=== PATIENT | male | born 1960 | race African-American/Black ===

== ENCOUNTER 2017-07-26 11:16 | Inpatient (IN) | payer OTHER ==
[2017-07-26 11:54] VITALS: BMI 22.4
--- NOTE | 2017-07-26 14:35 | HP ---
CIWA Score - CIWA Score Nausea/Vomitin Muscle Tremors: 3 Anxiety: 3 Agitation: 1-Slight > Activity Paroxysmal Sweats: 4-Forehead w/Sweat Beads Orientation: 0-Oriented Tacttile Disturbances: 0-None Auditory Disturbances: 0-None Visual Disturbances: 0-None Headache: 3-Moderate CIWA-Ar Total Score: 17 Admission ROS S - HPI Chief Complaint: Alcohol withdrawal symptoms Allergies/Adverse Reactions: Allergies Allergy/AdvReac Type Severity Reaction Status Date / Time No Known Allergies Allergy Verified 07/26/17 14:03 History of Present Illness: 57 years old male with a long history of alcohol dependence is seeking admission to detox. Patient has been to previous detox at [facility] 9 years ago and reports insignificant period of sobriety. He has medical history of hypertension (not on medication) and depression. He denies suicide attempt and suicidal ideation at this time. He is on methadone 70mg tablet oral at [facility]. Last dose medicated is 07/25/2017. Dose is yet to be confirmed by the nurse. This is his first admission to [facility]. Exam Limitations: No Limitations - Ebola screening Have you traveled outside of the country in the last 21 days: No (N) Have you had contact with anyone from an Ebola affected area: No Have you been sick,other than usual withdrawal symptoms: No Do you have a fever: No - Review of Systems Constitutional: Loss of Appetite, Malaise, Night Sweats, Changes in sleep EENT: reports: Mouth Swelling Respiratory: reports: No Symptoms reported Cardiac: reports: No Symptoms Reported GI: reports: Diarrhea (x 2), Nausea, Poor Appetite, Poor Fluid Intake, Vomiting (x 2), Abdominal cramping : reports: No Symptoms Reported Musculoskeletal: reports: No Symptoms Reported Integumentary: reports: Dryness Neuro: reports: Headache, Tingling, Tremors Endocrine: reports: No Symptoms Reported Hematology: reports: No Symptoms Reported Psychiatric: reports: Orientated x3, Anxious, Depressed Other Systems: Reviewed and Negative Patient History - Patient Medical History Hx Anemia: No Hx Asthma: No Hx Chronic Obstructive Pulmonary Disease (COPD): No Hx Cancer: No Hx Cardiac Disorders: No Hx Congestive Heart Failure: No Hx Hypertension: Yes (Not on medication) Hx Hypercholesterolemia: No Hx Pacemaker: No HX Cerebrovascular Accident: No Hx Seizures: No Hx Diabetes: No Hx Gastrointestinal Disorders: No Hx Liver Disease: No Hx Genitourinary Disorders: No Hx Sexually Transmitted Disorders: No Hx Renal Disease (ESRD): No Hx Thyroid Disease: No Hx Human Immunodeficiency Virus (HIV): No (Negative 2017) Hx Hepatitis C: No Hx Depression: Yes (Not on medication) Hx Suicide Attempt: Yes (Denies suicidal ideation at this time) Hx Bipolar Disorder: No Hx Schizophrenia: No - Patient Surgical History Past Surgical History: No - PPD History Previous Implant?: No Documented Results: Negative w/o proof PPD to be Administered?: Yes - Reproductive History Patient is a Female of Child Bearing Age (11 -55 yrs old): No (MALE) - Smoking Cessation Smoking history: Former smoker Have you smoked in the past 12 months: No Hx Chewing Tobacco Use: No Initiated information on smoking cessation: No - Substance & Tx. History Hx Alcohol Use: Yes Hx Substance Use: No Substance Use Type: Alcohol Hx Substance Use Treatment: Yes ([place], [place]) - Substances Abused Alcohol Route: Oral Frequency: Daily Amount used: 1 PINT VODKA Age of first use: 15 Date of Last Use: 07/26/17 Family Disease History - Family Disease History Family Disease History: Heart Disease: Mother (HTN- ) Admission Physical Exam S - Vital Signs Vital Signs: Vital Signs - 24 hr 07/26/17 11:52 Temperature 98.6 F Pulse Rate 63 Respiratory 20 Rate Blood Pressure 169/102 - Physical General Appearance: Yes: Disheveled, Moderate Distress, Tremorous, Irritable, Sweating, Anxious HEENTM: Yes: EOMI, Normal ENT Inspection, Normal Voice, JAYSON Respiratory: Yes: Lungs Clear, Normal Breath Sounds, No Respiratory Distress Neck: Yes: Supple Breast: Yes: Breast Exam Deferred Cardiology: Yes: Regular Rhythm, Regular Rate Abdominal: Yes: Normal Bowel Sounds, Soft Genitourinary: Yes: Within Normal Limits Back: Yes: Normal Inspection Musculoskeletal: Yes: Within Normal Limits Extremities: Yes: Tremors Neurological: Yes: Alert, Normal Mood/Affect Integumentary: Yes: Dry Lymphatic: Yes: Within Normal Limits - Diagnostic (1) Alcohol dependence with uncomplicated withdrawal Current Visit: Yes Status: Chronic (2) Hypertension Current Visit: Yes Status: Chronic Qualifiers: Hypertension type: unspecified Qualified Code(s): I10 - Essential (primary ) hypertension (3) Depression Current Visit: Yes Status: Acute Qualifiers: Depression Type: unspecified Qualified Code(s): F32.9 - Major depressive disorder, single episode, unspecified Cleared for Admission [facility] - Detox or Rehab [facility] Level of Care: Medically Managed Detox Regimen/Protocol: Librium S Breath Alcohol Content Breath Alcohol Content: 0.002 Urine Drug Screen - Results Drug Screen Negative: Yes
[2017-07-26] MEDS ORDERED: chlordiazePOXIDE HCL 25 MG CAPSULE PO PRN (14:52)
[2017-07-26] MEDS ORDERED: MENTHOL/PHENOL 1 EACH UD MM PRN (14:52)
[2017-07-26] MEDS ORDERED: guaiFENesin/D-METHORPHAN HB 10 ML UNIT-DOSE CUPS PO PRN (14:52)
[2017-07-26] MEDS ORDERED: LOPERAMIDE HCL 2 MG CAPSULE PO PRN (14:52)
[2017-07-26] MEDS ORDERED: MAGNESIUM CITRATE 300 ML BOTTLE PO PRN (14:52)
[2017-07-26] MEDS ORDERED: MAGNESIUM HYDROX 2400MG/30ML ORAL SUSPENSION 30 ML CUP PO PRN (14:52)
[2017-07-26] MEDS ORDERED: P-EPHED 60MG/TRIPROLIDI 2.5MG TABLET PO PRN (14:52)
[2017-07-26] MEDS ORDERED: MAG HYDROX/AL HYDROX/SIMETH 30 ML UNIT-DOSE CUP PO PRN (14:52)
[2017-07-26] MEDS ORDERED: IBUPROFEN 400 MG TABLET (FP) PO PRN (14:52)
[2017-07-26] MEDS ORDERED: ACETAMINOPHEN 325 MG TABLET (FP) PO PRN (15:14)
[2017-07-26] MEDS ORDERED: cloNIDine HCL 0.1 MG TABLET PO ONE (15:30)
[2017-07-26] MEDS: chlordiazePOXIDE HCL 25 MG CAPSULE PO SCH ×2 (16:48→22:41)
[2017-07-26] MEDS ORDERED: MELATONIN 5 MG TABLETS PO PRN (22:00)
[2017-07-26] MEDS: THIAMINE HCL 100 MG TABLET (FP) PO SCH (22:41)
[2017-07-27 01:19] LABS: URINE APPEARANCE CLEAR; URINE BILIRUBIN NEGATIVE (<2.0 mg/dL); URINE BLOOD NEGATIVE (NEGATIVE); URINE COLOR LTYELLOW; URINE GLUCOSE (UA) NEGATIVE (NEGATIVE); URINE KETONE NEGATIVE (NEGATIVE); URINE LEUK ESTERASE NEGATIVE (NEGATIVE); URINE NITRITE NEGATIVE (NEGATIVE); URINE PROTEIN NEGATIVE (NEGATIVE); URINE UROBILINOGEN NEGATIVE mg/dL (0.2-1.0)
[2017-07-27] MEDS: chlordiazePOXIDE HCL 25 MG CAPSULE PO SCH ×4 (05:47→22:18)
[2017-07-27] MEDS ORDERED: METHADONE HCL 10 MG TABLET PO SCH (07:45)
--- NOTE | 2017-07-27 08:27 | CONSULT ---
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 Patient reports no history of psychiatric hospitalizations, reports MMTP 70mg per day, reports withdrawal symptoms due to abusing Alcohol and Opioids. Substance Abuse History: Smoking history: Former smoker. Have you smoked in the past 12 months: No. Hx Chewing Tobacco Use: No. Initiated information on smoking cessation: No. - Substance & Tx. History. Hx Alcohol Use: Yes. Hx Substance Use: No. Substance Use Type: Alcohol. Hx Substance Use Treatment: Yes ([place], [place]). - Substances Abused. Alcohol. Route: Oral. Frequency: Daily. Amount used: 1 PINT VODKA. Age of first use: 15. Date of Last Use: 07/26/17 Medical History: HTN, MMTP 70mg po daily Psychiatric History: Patient reports history of depression, denies suicidal, homicidal history, reports no medications taking prior to admission Physical/Sexual Abuse/Trauma History: Denies Additional Comment: Observation. Detox Un it Care P[rotocol Mental Status Exam - Mental Status Exam Alert and Oriented to: Person Cognitive Function: Fair Patient Appearance: Unkempt Mood: Apprehensive Affect: Mood Congruent Patient Behavior: Cooperative Speech Pattern: Appropriate Voice Loudness: Mildly Soft/Quiet Thought Process: Goal Oriented Thought Disorder: Being Controlled Hallucinations: Denies Suicidal Ideation: Denies Homicidal Ideation: Denies Insight/Judgement: Fair Sleep: Difficulty falling asleep Appetite: Weight loss Muscle strength/Tone: Normal Gait/Station: Normal Additional Comments: Observation. Detox Un it Care P[rotocol Psychiatric Findings - Problem List ([place] 1, 2,3) (1) Opioid dependence Current Visit: Yes Status: Suspected (2) Drug-induced mood disorder Current Visit: Yes Status: Acute (3) Alcohol dependence with uncomplicated withdrawal Current Visit: Yes Status: Chronic - Initial Treatment Plan Initial Treatment Plan: Observation. Detox Un it Care P[rotocol
[2017-07-27] MEDS ORDERED: METHADONE HCL 40 MG DISPERSABLE TABLET ONE (09:02)
[2017-07-27] MEDS ORDERED: METHADONE HCL 10 MG TABLET ONE (09:02)
[2017-07-27] MEDS: METHADONE 40 MG, METHADONE 30 MG PO SCH (09:16)
[2017-07-27] MEDS: PRENATAL VITAMINS W/ FOLIC ACID TABLET (FP) PO SCH (11:07)
[2017-07-27 12:33] LABS: ALK PHOS 142 U/L (45-117); ANION GAP 13 (8-16); BILIRUBIN,TOTAL 1.2 mg/dL (0.2-1.0); BLOOD UREA NITROGEN 17 mg/dL (7-18); CALCIUM 9.8 mg/dL (8.5-10.1); CHLORIDE 97 mmol/L (98-107); CO2 30 mmol/L (21-32); CREATININE 0.8 mg/dL (0.7-1.3); GLUCOSE,RANDOM 109 mg/dL (74-106); POTASSIUM 3.5 mmol/L (3.5-5.1); SGOT/AST 65 U/L (15-37); SGPT/ALT 52 U/L (12-78); SODIUM 140 mmol/L (136-145); TOT PROT 8.2 g/dl (6.4-8.2)
--- NOTE | 2017-07-27 12:39 | PN ---
[facility] CIWA - CIWA Score Nausea/Vomitin Muscle Tremors: 3 Anxiety: 3 Agitation: 3 Paroxysmal Sweats: 1-Minimal Palms Moist Orientation: 1-Uncertain about Date Tacttile Disturbances: 1-Very Mild Itch/Numbness Auditory Disturbances: 1-Very Mild Visual Disturbances: 0-None Headache: 2-Mild CIWA-Ar Total Score: 18 [facility] Progress Note (SOAP) Subjective: ALERT,IRRITABLE,ANXIOUS,INTERRUPTED SLEEP,TREMOR Objective: 07/27/17 12:36 Vital Signs Temperature 98.1 F 07/27/17 10:04 Pulse Rate 83 07/27/17 10:04 Respiratory Rate 18 07/27/17 10:04 Blood Pressure 156/108 07/27/17 10:04 O2 Sat by Pulse Oximetry (%) 07/27/17 12:37 Laboratory Last Values Sodium 140 mmol/L (136-145) 07/27/17 07:00 Potassium 3.5 mmol/L (3.5-5.1) 07/27/17 07:00 Chloride 97 mmol/L (98-107) L 07/27/17 07:00 Carbon Dioxide 30 mmol/L (21-32) 07/27/17 07:00 Anion Gap 13 (8-16) 07/27/17 07:00 BUN 17 mg/dL (7-18) 07/27/17 07:00 Creatinine 0.8 mg/dL (0.7-1.3) 07/27/17 07:00 Creat Clearance w eGFR > 60 (>60) 07/27/17 07:00 Random Glucose 109 mg/dL (74-106) H 07/27/17 07:00 Calcium 9.8 mg/dL (8.5-10.1) 07/27/17 07:00 Total Bilirubin 1.2 mg/dL (0.2-1.0) H 07/27/17 07:00 AST 65 U/L (15-37) H 07/27/17 07:00 ALT 52 U/L (12-78) 07/27/17 07:00 Alkaline Phosphatase 142 U/L (45-117) H 07/27/17 07:00 Total Protein 8.2 g/dl (6.4-8.2) 07/27/17 07:00 Albumin 4.0 g/dl (3.4-5.0) 07/27/17 07:00 Urine Color Ltyellow 07/26/17 23:30 Urine Appearance Clear 07/26/17 23:30 Urine pH 8.0 (5.0-8.0) 07/26/17 23:30 Ur Specific [place] 1.012 (1.001-1.035) 07/26/17 23:30 Urine Protein Negative (NEGATIVE) 07/26/17 23:30 Urine Glucose (UA) Negative (NEGATIVE) 07/26/17 23:30 Urine Ketones Negative (NEGATIVE) 07/26/17 23:30 Urine Blood Negative (NEGATIVE) 07/26/17 23:30 Urine Nitrite Negative (NEGATIVE) 07/26/17 23:30 Urine Bilirubin Negative (<2.0 mg/dL) 07/26/17 23:30 Urine Urobilinogen Negative mg/dL (0.2-1.0) 07/26/17 23:30 Ur Leukocyte Esterase Negative (NEGATIVE) 07/26/17 23:30 LABS PENDING 07/27/17 12:38 EKG INVERTED T IN AVL NO CHEST PAIN,NO SOB,NO DIZZINESS Assessment: 07/27/17 12:39 WITHDRAWAL SYMPTOM Plan: CONTINUE DETOX
[2017-07-27 14:24] LABS: HEMATOCRIT 41.3 % (35.4-49); HEMOGLOBIN 13.8 GM/dL (11.7-16.9); MCHC 33.4 g/dl (32.0-35.9); MEAN PLT VOLUME 8.8 fl (7.5-11.1); PLATELET COUNT 203 K/MM3 (134-434); RDW 14.4 % (11.9-15.9)
[2017-07-27] MEDS: THIAMINE HCL 100 MG TABLET (FP) PO SCH (22:18)
[2017-07-28] MEDS ORDERED: METHADONE HCL 10 MG TABLET ONE (05:13)
[2017-07-28] MEDS ORDERED: METHADONE HCL 40 MG DISPERSABLE TABLET ONE (05:13)
[2017-07-28] MEDS: METHADONE 40 MG, METHADONE 30 MG PO SCH (05:40)
[2017-07-28] MEDS: chlordiazePOXIDE HCL 25 MG CAPSULE PO SCH ×2 (05:40→10:50)
--- NOTE | 2017-07-28 10:43 | EKG ---
Test Reason : Blood Pressure : / mmHG Vent. Rate : 059 BPM Atrial Rate : 059 BPM P-R Int : 160 ms QRS Dur : 100 ms QT Int : 428 ms P-R-T Axes : 084 093 080 degrees QTc Int : 423 ms SINUS BRADYCARDIA RIGHT ATRIAL ENLARGEMENT RIGHTWARD AXIS PULMONARY DISEASE PATTERN MODERATE VOLTAGE CRITERIA FOR LVH, MAY BE NORMAL VARIANT ABNORMAL ECG NO PREVIOUS ECGS AVAILABLE Confirmed by MD Ki, Sukumar ([id number]) on 07/28/2017 10:43:19 AM Referred By: Confirmed By:Sukumar Emerson MD
[2017-07-28] MEDS: PRENATAL VITAMINS W/ FOLIC ACID TABLET (FP) PO SCH (10:50)
[2017-07-28] MEDS: chlordiazePOXIDE 5 MG CAPSULE PO SCH ×2 (18:36→22:11)
[2017-07-28] MEDS: THIAMINE HCL 100 MG TABLET (FP) PO SCH (22:11)
[2017-07-29] MEDS ORDERED: METHADONE HCL 40 MG DISPERSABLE TABLET ONE (04:35)
[2017-07-29] MEDS ORDERED: METHADONE HCL 10 MG TABLET ONE (04:35)
[2017-07-29] MEDS: METHADONE 40 MG, METHADONE 30 MG PO SCH (05:46)
[2017-07-29] MEDS: chlordiazePOXIDE 5 MG CAPSULE PO SCH ×2 (05:46→11:05)
[2017-07-29] MEDS: PRENATAL VITAMINS W/ FOLIC ACID TABLET (FP) PO SCH (11:05)
--- NOTE | 2017-07-29 11:16 | PN ---
S CIWA - CIWA Score Nausea/Vomitin Muscle Tremors: 3 Anxiety: 2 Agitation: 2 Paroxysmal Sweats: 1-Minimal Palms Moist Orientation: 0-Oriented Tacttile Disturbances: 1-Very Mild Itch/Numbness Auditory Disturbances: 1-Very Mild Visual Disturbances: 0-None Headache: 2-Mild CIWA-Ar Total Score: 15 BHS Progress Note (SOAP) Subjective: ALERT,IRRITABLE,ANXIOUS,INTERRUPTED SLEEP Objective: 07/29/17 11:16 BP 109/61,P88.R18,T98.1 Assessment: 07/29/17 11:17 WITHDRAWAL SYMPTOM Laboratory Last Values WBC 4.0 K/mm3 (4.0-10.0) 07/27/17 07:00 RBC 4.30 M/mm3 (4.00-5.60) 07/27/17 07:00 Hgb 13.8 GM/dL (11.7-16.9) 07/27/17 07:00 Hct 41.3 % (35.4-49) 07/27/17 07:00 MCV 96.0 fl (80-96) 07/27/17 07:00 MCH 32.0 pg (25.7-33.7) 07/27/17 07:00 MCHC 33.4 g/dl (32.0-35.9) 07/27/17 07:00 RDW 14.4 % (11.9-15.9) 07/27/17 07:00 Plt Count 203 K/MM3 (134-434) 07/27/17 07:00 MPV 8.8 fl (7.5-11.1) 07/27/17 07:00 Sodium 140 mmol/L (136-145) 07/27/17 07:00 Potassium 3.5 mmol/L (3.5-5.1) 07/27/17 07:00 Chloride 97 mmol/L (98-107) L 07/27/17 07:00 Carbon Dioxide 30 mmol/L (21-32) 07/27/17 07:00 Anion Gap 13 (8-16) 07/27/17 07:00 BUN 17 mg/dL (7-18) 07/27/17 07:00 Creatinine 0.8 mg/dL (0.7-1.3) 07/27/17 07:00 Creat Clearance w eGFR > 60 (>60) 07/27/17 07:00 Random Glucose 109 mg/dL (74-106) H 07/27/17 07:00 Calcium 9.8 mg/dL (8.5-10.1) 07/27/17 07:00 Total Bilirubin 1.2 mg/dL (0.2-1.0) H 07/27/17 07:00 AST 65 U/L (15-37) H 07/27/17 07:00 ALT 52 U/L (12-78) 07/27/17 07:00 Alkaline Phosphatase 142 U/L (45-117) H 07/27/17 07:00 Total Protein 8.2 g/dl (6.4-8.2) 07/27/17 07:00 Albumin 4.0 g/dl (3.4-5.0) 07/27/17 07:00 Urine Color Ltyellow 07/26/17 23:30 Urine Appearance Clear 07/26/17 23:30 Urine pH 8.0 (5.0-8.0) 07/26/17 23:30 Ur Specific [place] 1.012 (1.001-1.035) 07/26/17 23:30 Urine Protein Negative (NEGATIVE) 07/26/17 23:30 Urine Glucose (UA) Negative (NEGATIVE) 07/26/17 23:30 Urine Ketones Negative (NEGATIVE) 07/26/17 23:30 Urine Blood Negative (NEGATIVE) 07/26/17 23:30 Urine Nitrite Negative (NEGATIVE) 07/26/17 23:30 Urine Bilirubin Negative (<2.0 mg/dL) 07/26/17 23:30 Urine Urobilinogen Negative mg/dL (0.2-1.0) 07/26/17 23:30 Ur Leukocyte Esterase Negative (NEGATIVE) 07/26/17 23:30 RPR Titer Nonreactive (NONREACTIVE) 07/27/17 07:00 Plan: CONTINUE DETOX
--- NOTE | 2017-07-29 11:22 | PN ---
S Progress Note (SOAP) Subjective: ALERT,IRRITABLE,INTERRUPTED SLEEP Objective: 07/29/17 11:21 Vital Signs Temperature 98.4 F 07/29/17 09:19 Pulse Rate 90 07/29/17 09:19 Respiratory Rate 18 07/29/17 09:19 Blood Pressure 128/76 07/29/17 09:19 O2 Sat by Pulse Oximetry (%) Assessment: 07/29/17 11:22 WITHDRAWAL SYMPTOM Plan: CONTINUE DETOX,DISCHARGE IN AM
[2017-07-29] MEDS: chlordiazePOXIDE HCL 10 MG CAPSULE PO SCH ×2 (17:17→22:17)
[2017-07-29] MEDS: THIAMINE HCL 100 MG TABLET (FP) PO SCH (22:17)
[2017-07-30] MEDS ORDERED: METHADONE HCL 40 MG DISPERSABLE TABLET ONE (05:02)
[2017-07-30] MEDS ORDERED: METHADONE HCL 10 MG TABLET ONE (05:02)
[2017-07-30] MEDS: chlordiazePOXIDE HCL 10 MG CAPSULE PO SCH ×2 (05:41→11:32)
[2017-07-30] MEDS: METHADONE 40 MG, METHADONE 30 MG PO SCH (05:41)
--- NOTE | 2017-07-30 08:27 | PN ---
S Progress Note (SOAP) Subjective: ALERT,NO COMPLAINT Objective: 07/30/17 08:25 Vital Signs Temperature 98.4 F 07/30/17 06:00 Pulse Rate 83 07/30/17 06:00 Respiratory Rate 18 07/30/17 06:00 Blood Pressure 129/86 07/30/17 06:00 O2 Sat by Pulse Oximetry (%) Assessment: 07/30/17 08:25 DETOX COMPLETED,NO WITHDRAWAL SYMPTOM Plan: DISCHARGE TODAY,FOLLOW UP WITH AFTER CARE PROGRAM ARRANGEMENT
--- NOTE | 2017-07-30 08:32 | DS ---
[facility] Detox Discharge Summary Admission Date: 07/26/17 Discharge Date: 07/30/17 - History Present History: Alcohol Dependence, MMTP Additional Comments: FOLLOW UP WITH AFTER CARE PROGRAM ARRANGEMENT Pertinent Past History: HYPERTENSION - Physical Exam Results Vital Signs: Vital Signs Temperature 98.4 F 07/30/17 06:00 Pulse Rate 83 07/30/17 06:00 Respiratory Rate 18 07/30/17 06:00 Blood Pressure 129/86 07/30/17 06:00 O2 Sat by Pulse Oximetry (%) Pertinent Admission Physical Exam Findings: WITHDRAWAL SIGNS AND SYMPTOM Vital Signs Temperature 98.4 F 07/30/17 06:00 Pulse Rate 83 07/30/17 06:00 Respiratory Rate 18 07/30/17 06:00 Blood Pressure 129/86 07/30/17 06:00 O2 Sat by Pulse Oximetry (%) Laboratory Last Values WBC 4.0 K/mm3 (4.0-10.0) 07/27/17 07:00 RBC 4.30 M/mm3 (4.00-5.60) 07/27/17 07:00 Hgb 13.8 GM/dL (11.7-16.9) 07/27/17 07:00 Hct 41.3 % (35.4-49) 07/27/17 07:00 MCV 96.0 fl (80-96) 07/27/17 07:00 MCH 32.0 pg (25.7-33.7) 07/27/17 07:00 MCHC 33.4 g/dl (32.0-35.9) 07/27/17 07:00 RDW 14.4 % (11.9-15.9) 07/27/17 07:00 Plt Count 203 K/MM3 (134-434) 07/27/17 07:00 MPV 8.8 fl (7.5-11.1) 07/27/17 07:00 Sodium 140 mmol/L (136-145) 07/27/17 07:00 Potassium 3.5 mmol/L (3.5-5.1) 07/27/17 07:00 Chloride 97 mmol/L (98-107) L 07/27/17 07:00 Carbon Dioxide 30 mmol/L (21-32) 07/27/17 07:00 Anion Gap 13 (8-16) 07/27/17 07:00 BUN 17 mg/dL (7-18) 07/27/17 07:00 Creatinine 0.8 mg/dL (0.7-1.3) 07/27/17 07:00 Creat Clearance w eGFR > 60 (>60) 07/27/17 07:00 Random Glucose 109 mg/dL (74-106) H 07/27/17 07:00 Calcium 9.8 mg/dL (8.5-10.1) 07/27/17 07:00 Total Bilirubin 1.2 mg/dL (0.2-1.0) H 07/27/17 07:00 AST 65 U/L (15-37) H 07/27/17 07:00 ALT 52 U/L (12-78) 07/27/17 07:00 Alkaline Phosphatase 142 U/L (45-117) H 07/27/17 07:00 Total Protein 8.2 g/dl (6.4-8.2) 07/27/17 07:00 Albumin 4.0 g/dl (3.4-5.0) 07/27/17 07:00 Urine Color Ltyellow 07/26/17 23:30 Urine Appearance Clear 07/26/17 23:30 Urine pH 8.0 (5.0-8.0) 07/26/17 23:30 Ur Specific [place] 1.012 (1.001-1.035) 07/26/17 23:30 Urine Protein Negative (NEGATIVE) 07/26/17 23:30 Urine Glucose (UA) Negative (NEGATIVE) 07/26/17 23:30 Urine Ketones Negative (NEGATIVE) 07/26/17 23:30 Urine Blood Negative (NEGATIVE) 07/26/17 23:30 Urine Nitrite Negative (NEGATIVE) 07/26/17 23:30 Urine Bilirubin Negative (<2.0 mg/dL) 07/26/17 23:30 Urine Urobilinogen Negative mg/dL (0.2-1.0) 07/26/17 23:30 Ur Leukocyte Esterase Negative (NEGATIVE) 07/26/17 23:30 RPR Titer Nonreactive (NONREACTIVE) 07/27/17 07:00 - Treatment Hospital Course: Detox Protocol Followed, Detoxed Safely, Responded well, Discharged Condition Good Patient has Accepted a Rehab Referral to: DECLINED - Medication Discharge Medications: Ambulatory Orders Methadone [Dolophine -] 70 mg PO DAILY 07/26/17 - Diagnosis (1) Alcohol dependence with uncomplicated withdrawal Current Visit: Yes Status: Chronic (2) Hypertension Current Visit: Yes Status: Chronic Qualifiers: Hypertension type: unspecified Qualified Code(s): I10 - Essential (primary ) hypertension (3) Methadone maintenance therapy patient Current Visit: Yes Status: Acute - AMA Did Patient Leave Against Medical Advice: No
[2017-07-30 11:18] VITALS: BP 105/58; PULSE 84; TEMP 98.1
[2017-07-30] MEDS: PRENATAL VITAMINS W/ FOLIC ACID TABLET (FP) PO SCH (11:32)
== END 2017-07-30 12:20 | disposition home or self-care (01) | DRG 773 ==
LOC: YASAS 11:16 → Y6N 14:46
PROVIDERS: ADMIT Internal Medicine; ATTEND Internal Medicine
PROC: HZ2ZZZZ Detoxification Services for Substance Abuse Treatment (ICD-10-PCS; principal; 2017-07-26)
DX: F11.20 Opioid dependence, uncomplicated (principal); F10.230 Alcohol dependence with withdrawal, uncomplicated; F19.24 Other psychoactive substance dependence with psychoactive substance-induced mood disorder; F32.9 Major depressive disorder, single episode, unspecified; I10 Essential (primary) hypertension
CPT/HCPCS: 36415; 80053; 81003; 85027; 86593; 93005; 93010; J0735